=== PATIENT | male | born 1940 | race Caucasian/White ===

== ENCOUNTER 2016-06-21 19:18 | Emergency (ER) | payer OTHER, MEDICARE ==
[2016-06-21 20:47] LABS: HEMOGLOBIN 13.1 gm/dl (14.0-17.5); RED BLOOD COUNT 4.12 M/UL (4.20-5.50); WHITE BLOOD COUNT 12.8 K/UL (4.5-11.0)
[2016-06-21 21:07] LABS: BUN/CREATININE RATIO 36 (0-10)
== END 2016-06-22 02:42 | disposition home or self-care (01) ==
LOC: ER1 19:18
PROVIDERS: Emergency Medicine
DX: J44.1 Chronic obstructive pulmonary disease with (acute) exacerbation (principal); I10 Essential (primary) hypertension; Z88.8 Allergy status to other drugs, medicaments and biological substances
CPT/HCPCS: 36415; 71020; 80053; 82550; 82553; 83690; 83874; 83880; 84484; 85025; 85610; 85730; 87040; 93005; 94640; 94664; 96374; 99285; J2930

== ENCOUNTER 2016-06-23 18:21 | Emergency (ER) | payer MEDICARE, OTHER ==
[2016-06-23 20:56] LABS: HEMOGLOBIN 12.2 gm/dl (14.0-17.5); RED BLOOD COUNT 3.84 M/UL (4.20-5.50); WHITE BLOOD COUNT 8.9 K/UL (4.5-11.0)
[2016-06-23 21:24] LABS: BUN/CREATININE RATIO 34 (0-10)
== END 2016-06-23 23:10 | disposition home or self-care (01) ==
LOC: ER1 18:21
PROVIDERS: Family Medicine
DX: J44.1 Chronic obstructive pulmonary disease with (acute) exacerbation (principal); N18.9 Chronic kidney disease, unspecified; Z87.891 Personal history of nicotine dependence
CPT/HCPCS: 71010; 80053; 82550; 82553; 83874; 83880; 84484; 85025; 93005; 94640; 94664; 96374; 99285; J2930; J7030

== ENCOUNTER 2020-04-29 16:40 | Emergency (ER) | payer MEDICARE, OTHER ==
[2020-04-29 17:30] LABS: HEMOGLOBIN 9.5 gm/dl (14.0-17.5); RED BLOOD COUNT 3.17 M/UL (4.20-5.50)
[2020-04-29 17:49] LABS: BUN/CREATININE RATIO 19 (0-10)
== END 2020-04-29 20:20 | disposition home or self-care (01) ==
LOC: ER1 16:40
PROVIDERS: Internal Medicine
DX: R53.1 Weakness (principal); R50.9 Fever, unspecified; R06.02 Shortness of breath; T50.B95A Adverse effect of other viral vaccines, initial encounter; J44.9 Chronic obstructive pulmonary disease, unspecified; Z20.822 Contact with and (suspected) exposure to COVID-19; I10 Essential (primary) hypertension
CPT/HCPCS: 0240U; 36415; 36600; 71045; 80053; 82803; 85025; 99285

== ENCOUNTER 2020-05-27 03:20 | Emergency (ER) | payer OTHER, MEDICARE ==
[2020-05-27 03:54] LABS: HEMOGLOBIN 9.2 gm/dl (14.0-17.5); RED BLOOD COUNT 3.08 M/UL (4.20-5.50); WHITE BLOOD COUNT 5.8 K/UL (4.5-11.0)
[2020-05-27 05:03] LABS: BUN/CREATININE RATIO 22 (0-10)
[2020-05-27] MEDS ORDERED: LEVOFLOXACIN500 MG PO (06:49)
== END 2020-05-27 08:00 | disposition home or self-care (01) ==
LOC: ER1 03:20
PROVIDERS: Family Medicine
DX: J44.0 Chronic obstructive pulmonary disease with (acute) lower respiratory infection (principal); J18.9 Pneumonia, unspecified organism; Z20.822 Contact with and (suspected) exposure to COVID-19
CPT/HCPCS: 0240U; 36600; 71045; 73080; 80053; 81001; 82550; 82553; 82803; 83605; 83874; 83880; 84484; 85025; 85610; 87040; 93005; 96365; 99284; J0696

== ENCOUNTER → 2020-08-27 | Outpatient (CLI) | payer OTHER, MEDICARE ==
[~2020-08-27] MED LIST: ALBUTEROL2.5 MG/3 M INH; AMLODIPINE BESYL5 MG PO; ASPIRIN EC81 MG PO; AUGMENTIN 875-1 EACH PO; BUSPIRONE HCL5 MG PO; CEFUROXIME500 MG PO; DOXYCYCLINE MO100 MG PO; ECOTRIN81 MG PO; ENSURE ORIGINA237 ML PO; FERROUS SULFAT325 MG PO; FLOMAX 0.4 MG0.4 MG PO; KENALOG 0.5% CR15 GM TOP; LEVOFLOXACIN500 MG PO; LOPRESSOR50 MG PO; LOTRISONE CREAM15 GM TOP; MYSOLINE50 MG PO; NEURONTIN300 MG PO; PAXIL20 MG PO; PREDNISONE5 M1 PO; PROVENTIL HFA6.7 GM INH; SINGULAIR10 MG PO; SPIRIVA RESPIMAT4 GM INH; SYMBICORT 16010.2 GM INH; THERAGRAN M TAB1 EA PO; TYLENOL EXTRA500 MG PO
== END ==
LOC: KOH-I 12:03
DX: R04.2 Hemoptysis (principal); R91.8 Other nonspecific abnormal finding of lung field
CPT/HCPCS: 71046

== ENCOUNTER 2020-09-02 08:54 | Inpatient (IN) | payer MEDICARE, OTHER ==
[~2020-09-02] VITALS: Ht 167.6 cm; Wt 54.4 kg
[~2020-09-02 08:54] MED LIST changes: -ALBUTEROL2.5 MG/3 M INH; -AMLODIPINE BESYL5 MG PO; -ASPIRIN EC81 MG PO; -AUGMENTIN 875-1 EACH PO; -BUSPIRONE HCL5 MG PO; -CEFUROXIME500 MG PO; -DOXYCYCLINE MO100 MG PO; -ECOTRIN81 MG PO; -ENSURE ORIGINA237 ML PO; -FERROUS SULFAT325 MG PO; -FLOMAX 0.4 MG0.4 MG PO; -KENALOG 0.5% CR15 GM TOP; -LOPRESSOR50 MG PO; -LOTRISONE CREAM15 GM TOP; -MYSOLINE50 MG PO; -NEURONTIN300 MG PO; -PAXIL20 MG PO; -PREDNISONE5 M1 PO; -PROVENTIL HFA6.7 GM INH; -SINGULAIR10 MG PO; -SPIRIVA RESPIMAT4 GM INH; -SYMBICORT 16010.2 GM INH; -THERAGRAN M TAB1 EA PO; -TYLENOL EXTRA500 MG PO
[2020-09-02 09:52] LABS: HEMOGLOBIN 8.7 gm/dl (14.0-17.5); RED BLOOD COUNT 2.99 M/UL (4.20-5.50); WHITE BLOOD COUNT 4.3 K/UL (4.5-11.0)
[2020-09-02 10:19] LABS: BUN/CREATININE RATIO 29 (0-10)
[2020-09-02] MEDS ORDERED: PROVENTIL HFA6.7 GM INH (12:03)
[2020-09-02] MEDS ORDERED: DOXYCYCLINE MO100 MG PO (12:04)
[2020-09-02] MEDS ORDERED: PREDNISONE5 M1 PO (12:05)
[2020-09-02] MEDS ORDERED: AMLODIPINE BESYL5 MG PO (12:23)
[2020-09-02] MEDS ORDERED: SYMBICORT 16010.2 GM INH (12:24)
[2020-09-02] MEDS ORDERED: LOPRESSOR50 MG PO (12:24)
[2020-09-02] MEDS ORDERED: NEURONTIN300 MG PO (12:24)
[2020-09-02] MEDS ORDERED: BUSPIRONE HCL5 MG PO (12:24)
[2020-09-02] MEDS ORDERED: SINGULAIR10 MG PO (12:25)
[2020-09-02] MEDS ORDERED: PAXIL20 MG PO (12:25)
[2020-09-02] MEDS ORDERED: SPIRIVA RESPIMAT4 GM INH (12:25)
[2020-09-02] MEDS ORDERED: MYSOLINE50 MG PO (12:25)
[2020-09-02] MEDS ORDERED: ENSURE ORIGINA237 ML PO (12:26)
[2020-09-02] MEDS ORDERED: ALBUTEROL2.5 MG/3 M INH (12:26)
[2020-09-02] MEDS ORDERED: ASPIRIN EC81 MG PO (12:27)
[2020-09-02] MEDS ORDERED: KENALOG 0.5% CR15 GM TOP (12:27)
[2020-09-02] MEDS ORDERED: TYLENOL EXTRA500 MG PO (12:28)
[2020-09-03 04:31] LABS: HEMOGLOBIN 7.9 gm/dl (14.0-17.5); RED BLOOD COUNT 2.7 M/UL (4.20-5.50)
[2020-09-03 04:34] LABS: WHITE BLOOD COUNT 2.2 K/UL (4.5-11.0)
[2020-09-03 04:47] LABS: BUN/CREATININE RATIO 25 (0-10)
[2020-09-04 08:39] LABS: HEMOGLOBIN 8.4 gm/dl (14.0-17.5); RED BLOOD COUNT 2.87 M/UL (4.20-5.50)
[2020-09-04 08:40] LABS: WHITE BLOOD COUNT 2.8 K/UL (4.5-11.0)
[2020-09-04 14:11] LABS: HEMATOCRIT 24.4 % (37.5-51.0)
[2020-09-04 17:13] LABS: A/G RATIO 0.6 (0.7-1.7); ALPHA-1-GLOBULIN 0.2 g/dL (0.0-0.4); ALPHA-2-GLOBULIN 0.7 g/dL (0.4-1.0); BETA GLOBULIN 0.7 g/dL (0.7-1.3); GAMMA GLOBULIN 4.1 g/dL (0.4-1.8); GLOBULIN, TOTAL 5.7 g/dL (2.2-3.9); IMMUNOGLOBULIN A, QN, SERUM 47 mg/dL (61-437); IMMUNOGLOBULIN G, QN, SERUM 4902 mg/dL (603-1613); IMMUNOGLOBULIN M, QN, SERUM 40 mg/dL (15-143); PROTEIN, TOTAL, SERUM 8.7 g/dL (6.0-8.5)
[2020-09-05 05:51] LABS: HEMOGLOBIN 8.8 gm/dl (14.0-17.5); WHITE BLOOD COUNT 3.5 K/UL (4.5-11.0)
[2020-09-05 05:52] LABS: BUN/CREATININE RATIO 14 (0-10)
[2020-09-05] MEDS ORDERED: CEFUROXIME500 MG PO (08:57)
== END 2020-09-05 16:20 | disposition home or self-care (01) | DRG 178 ==
LOC: ER1 08:54 → CDU 11:32 → MED SURG 4 11:32
PROVIDERS: Emergency Medicine; Physician Assistant; Registered Nurse; ADMIT Internal Medicine
DX: J15.6 Pneumonia due to other Gram-negative bacteria (principal); D61.818 Other pancytopenia; J96.11 Chronic respiratory failure with hypoxia; E87.1 Hypo-osmolality and hyponatremia; C79.51 Secondary malignant neoplasm of bone; C90.00 Multiple myeloma not having achieved remission; J44.0 Chronic obstructive pulmonary disease with (acute) lower respiratory infection; Z66 Do not resuscitate; Z20.822 Contact with and (suspected) exposure to COVID-19; E11.9 Type 2 diabetes mellitus without complications; R31.9 Hematuria, unspecified; N28.1 Cyst of kidney, acquired; D47.2 Monoclonal gammopathy; D63.0 Anemia in neoplastic disease; I10 Essential (primary) hypertension; W18.30XA Fall on same level, unspecified, initial encounter; K59.00 Constipation, unspecified; F17.210 Nicotine dependence, cigarettes, uncomplicated; I25.10 Atherosclerotic heart disease of native coronary artery without angina pectoris; Z80.9 Family history of malignant neoplasm, unspecified; Z95.1 Presence of aortocoronary bypass graft; Z79.82 Long term (current) use of aspirin; Z79.899 Other long term (current) drug therapy; Z79.4 Long term (current) use of insulin
CPT/HCPCS: 36415; 36600; 70450; 71045; 72125; 74170; 80048; 80053; 81001; 82550; 82553; 82607; 82728; 82747; 82784; 82803; 83540; 83550; 83605; 83874; 83880; 83883; 83921; 84153; 84155; 84165; 84484; 85025; 86334; 87040; 87086; 93005; 94640; 94664; 94760; 96374; 97110-GP-CQ; 97161; 97530; 97530-GP-CQ; 99285; J0456; J0696; J2405; J2920; J7030; J7120; Q9967; U0002

== ENCOUNTER 2020-09-11 05:25 | Inpatient (IN) | payer MEDICARE, OTHER ==
[~2020-09-11] VITALS: Ht 167.6 cm; Wt 59.0 kg
[~2020-09-11 05:25] MED LIST changes: +ALBUTEROL2.5 MG/3 M INH; +AMLODIPINE BESYL5 MG PO; +ASPIRIN EC81 MG PO; +BUSPIRONE HCL5 MG PO; +CEFUROXIME500 MG PO; +DOXYCYCLINE MO100 MG PO; +ENSURE ORIGINA237 ML PO; +KENALOG 0.5% CR15 GM TOP; +LOPRESSOR50 MG PO; +MYSOLINE50 MG PO; +NEURONTIN300 MG PO; +PAXIL20 MG PO; +PREDNISONE5 M1 PO; +PROVENTIL HFA6.7 GM INH; +SINGULAIR10 MG PO; +SPIRIVA RESPIMAT4 GM INH; +SYMBICORT 16010.2 GM INH; +TYLENOL EXTRA500 MG PO
[2020-09-11 05:48] LABS: HEMOGLOBIN 8.7 gm/dl (14.0-17.5); RED BLOOD COUNT 2.98 M/UL (4.20-5.50)
[2020-09-11 06:19] LABS: BUN/CREATININE RATIO 22 (0-10)
[2020-09-12 05:21] LABS: HEMOGLOBIN 7.5 gm/dl (14.0-17.5); RED BLOOD COUNT 2.54 M/UL (4.20-5.50); WHITE BLOOD COUNT 2.7 K/UL (4.5-11.0)
[2020-09-12 05:39] LABS: BUN/CREATININE RATIO 18 (0-10)
[2020-09-13 04:55] LABS: HEMOGLOBIN 7.5 gm/dl (14.0-17.5); RED BLOOD COUNT 2.6 M/UL (4.20-5.50); WHITE BLOOD COUNT 2.2 K/UL (4.5-11.0)
[2020-09-13 05:04] LABS: BUN/CREATININE RATIO 13 (0-10)
[2020-09-15 02:35] LABS: HEMOGLOBIN 8.6 gm/dl (14.0-17.5); WHITE BLOOD COUNT 2.6 K/UL (4.5-11.0)
[2020-09-15 02:43] LABS: RED BLOOD COUNT 2.94 M/UL (4.20-5.50)
[2020-09-15 02:59] LABS: BUN/CREATININE RATIO 8 (0-10)
[2020-09-15] MEDS ORDERED: LOTRISONE CREAM15 GM TOP (16:29)
[2020-09-15] MEDS ORDERED: AUGMENTIN 875-1 EACH PO (16:29)
[2020-09-15] MEDS ORDERED: THERAGRAN M TAB1 EA PO (16:29)
[2020-09-15] MEDS ORDERED: FLOMAX 0.4 MG0.4 MG PO (16:29)
[2020-09-15] MEDS ORDERED: ECOTRIN81 MG PO (16:46)
[2020-09-15] MEDS ORDERED: FERROUS SULFAT325 MG PO (16:49)
--- NOTE | 2020-09-15 23:21 | NUR ---
PATIENT RECEIVED FROM PCU AT 1930, VSS PT AAO X 4. NO SIGNS OR SYMPTOMS OF ACUTE DISTRESS NOTED.
[2020-09-17 10:04] LABS: HEMOGLOBIN 8.5 gm/dl (14.0-17.5); RED BLOOD COUNT 2.85 M/UL (4.20-5.50)
== END 2020-09-17 18:35 | DRG 871 ==
LOC: ER1 05:25 → CDU 08:40 → M/S 08:40 → PROG CARE 08:40 → M/S 09-15 19:49
PROVIDERS: Emergency Medicine; Internal Medicine; ADMIT Internal Medicine Infectious Disease
PROC: 3E033XZ Introduction of Vasopressor into Peripheral Vein, Percutaneous Approach (ICD-10-PCS; principal; 2020-09-11)
DX: A41.9 Sepsis, unspecified organism (principal); R65.21 Severe sepsis with septic shock; J96.21 Acute and chronic respiratory failure with hypoxia; J18.9 Pneumonia, unspecified organism; D61.818 Other pancytopenia; E44.0 Moderate protein-calorie malnutrition; J90 Pleural effusion, not elsewhere classified; C90.00 Multiple myeloma not having achieved remission; J43.9 Emphysema, unspecified; Z20.822 Contact with and (suspected) exposure to COVID-19; Z66 Do not resuscitate; D50.9 Iron deficiency anemia, unspecified; E87.6 Hypokalemia; N40.0 Benign prostatic hyperplasia without lower urinary tract symptoms; I25.10 Atherosclerotic heart disease of native coronary artery without angina pectoris; R31.9 Hematuria, unspecified; I10 Essential (primary) hypertension; R53.81 Other malaise; M89.9 Disorder of bone, unspecified; I45.19 Other right bundle-branch block; D47.2 Monoclonal gammopathy; Z68.20 Body mass index [BMI] 20.0-20.9, adult; Z87.891 Personal history of nicotine dependence; Z95.1 Presence of aortocoronary bypass graft; Z80.8 Family history of malignant neoplasm of other organs or systems; Z79.82 Long term (current) use of aspirin
CPT/HCPCS: 36415; 71045; 71250; 80053; 80202; 81001; 82803; 83605; 83735; 84100; 84153; 85025; 86140; 87040; 87081; 87086; 93005; 94640; 94664; 94760; 96365; 96366; 96368; 96375; 97110-GP-CQ; 97116-GP-CQ; 97162; 97530-GP-CQ; 99285; J1756; J2405; J2543; J3370; J7030; J7070; U0002

== ENCOUNTER 2020-10-16 12:30 | Observation (INO) | payer MEDICARE, OTHER ==
[~2020-10-16] VITALS: Ht 167.6 cm; Wt 52.2 kg
[~2020-10-16 12:30] MED LIST changes: +AUGMENTIN 875-1 EACH PO; +ECOTRIN81 MG PO; +FERROUS SULFAT325 MG PO; +FLOMAX 0.4 MG0.4 MG PO; +LOTRISONE CREAM15 GM TOP; +THERAGRAN M TAB1 EA PO
[2020-10-16 15:42] LABS: RED BLOOD COUNT 1.82 M/UL (4.20-5.50); WHITE BLOOD COUNT 3.8 K/UL (4.5-11.0)
[2020-10-16 15:50] LABS: HEMOGLOBIN 5.2 gm/dl (14.0-17.5)
[2020-10-16 16:02] LABS: BUN/CREATININE RATIO 29 (0-10)
[2020-10-17 09:30] LABS: HEMOGLOBIN 7.6 gm/dl (14.0-17.5); RED BLOOD COUNT 2.6 M/UL (4.20-5.50)
[2020-10-17 09:41] LABS: BUN/CREATININE RATIO 26 (0-10)
== END 2020-10-17 20:22 | disposition home or self-care (01) ==
LOC: ER1 12:30 → CDU 16:11 → M/S 18:02
PROVIDERS: Preventive Medicine Occupational Medicine; ADMIT Internal Medicine
DX: D61.818 Other pancytopenia (principal); C90.00 Multiple myeloma not having achieved remission; M89.9 Disorder of bone, unspecified; I25.10 Atherosclerotic heart disease of native coronary artery without angina pectoris; D47.2 Monoclonal gammopathy; I10 Essential (primary) hypertension; J44.9 Chronic obstructive pulmonary disease, unspecified; J96.11 Chronic respiratory failure with hypoxia; I45.10 Unspecified right bundle-branch block; E44.0 Moderate protein-calorie malnutrition; Z68.1 Body mass index [BMI] 19.9 or less, adult; Z20.822 Contact with and (suspected) exposure to COVID-19; Z95.1 Presence of aortocoronary bypass graft; Z87.891 Personal history of nicotine dependence; Z66 Do not resuscitate; Z86.73 Personal history of transient ischemic attack (TIA), and cerebral infarction without residual deficits; Z88.8 Allergy status to other drugs, medicaments and biological substances; Z79.82 Long term (current) use of aspirin; Z79.899 Other long term (current) drug therapy
CPT/HCPCS: 36415; 36430; 36600; 70450; 71045; 80048; 80053; 80307; 81001; 82140; 82550; 82553; 82803; 83605; 83690; 83874; 83880; 84484; 85025; 86140; 86850; 86900; 86901; 86920; 87086; 93005; 94664; 94760; 96374; 96375; 99285; G0378; J0696; P9016; U0002